=== PATIENT | male | born 1975 | race Caucasian/White ===

== ENCOUNTER 2023-01-18 13:03 | Emergency (ER) | payer BC ==
[2023-01-18] MEDS ORDERED: Ondansetron 4 MG/2 ML SDV IVPUSH ONE (13:51)
[2023-01-18] MEDS ORDERED: Sodium Chloride 0.9% 1,000 ML IV ONE (13:52)
[2023-01-18 13:57] LABS: BASOPHILS ABSOLUTE AUTO 0.02 K/uL (0.00-0.20); BASOPHILS PERCENT AUTO 0.2 % (0.0-2.0); EOSINOPHILS ABSOLUTE AUTO 0.01 K/uL (0.00-0.50); EOSINOPHILS PERCENT AUTO 0.1 % (0.0-5.0); HEMATOCRIT 38.2 % (39.0-49.0); HEMOGLOBIN 12.4 g/dL (13.1-16.8); LYMPHOCYTES ABSOLUTE AUTO 0.98 K/uL (0.50-3.50); LYMPHOCYTES PERCENT AUTO 11.1 % (10.0-50.0); MEAN CORPUSCULAR HEMOGLOBIN 29.7 pg (28.2-33.3); MEAN CORPUSCULAR HGB CONC 32.5 g/dL (31.7-36.0); MEAN CORPUSCULAR VOLUME 91.4 fL (84.0-98.0); MONOCYTES ABSOLUTE AUTO 0.56 K/uL (0.00-1.00); MONOCYTES PERCENT AUTO 6.4 % (2.0-14.0); NEUTROPHILS ABSOLUTE AUTO 7.24 K/uL (1.40-7.00); NEUTROPHILS PERCENT AUTO 82.2 % (45.0-80.0); PLATELET COUNT,PLT 416 K/uL (150-350); RED BLOOD CELL COUNT 4.18 M/uL (4.33-5.41); RED CELL DISTRIBUTION WIDTH 14.1 % (11.2-14.1); WHITE BLOOD CELL COUNT,WBC 8.8 K/uL (4.0-10.2)
[2023-01-18 14:05] LABS: APPEARANCE,URINE SLIGHTLY CLOUDY; BILIRUBIN,URINE NEGATIVE (NEGATIVE); COLOR,URINE YELLOW; GLUCOSE,URINE NEGATIVE (NEGATIVE); KETONES,URINE 15 mg/dL (NEGATIVE); LEUKOCYTE ESTERASE,URINE NEGATIVE (NEGATIVE); NITRITE,URINE NEGATIVE (NEGATIVE); OCCULT BLOOD,URINE SMALL (NEGATIVE); PH,URINE 5.5 (5.0-9.0); PROTEIN,URINE 30 mg/dL (NEGATIVE); UROBILINOGEN,URINE 0.2 E.U./dL (0.2-1.0)
[2023-01-18] MEDS ORDERED: Sodium Chloride 0.9% 10 ML Syringe FLUSH PRN (14:06)
[2023-01-18 14:12] LABS: ALBUMIN 3.3 g/dL (3.4-5.0); ANION GAP 11.2 meq/L (7-15); BILIRUBIN TOTAL 0.9 mg/dL (0.2-1.0); C-REACTIVE PROTEIN 6.5 mg/dL (0.05-0.30); CALCIUM 8.9 mg/dL (8.5-10.1); CARBON DIOXIDE,CO2 23.8 mmol/L (21.0-32.0); CREATININE 1.13 mg/dL (0.51-1.17); POTASSIUM,K 4.2 mmol/L (3.5-5.1); PROTEIN TOTAL,TP 7.7 g/dL (6.4-8.2)
[2023-01-18 14:15] LABS: BACTERIA,URINE RARE /HPF (NONE TO FEW); EPITHELIAL CELLS,URINE RARE /LPF; GRANULAR CASTS,URINE RARE; HYALINE CASTS,URINE RARE; RBC,URINE 0-5 /HPF; WBC,URINE 0-5 /HPF
[2023-01-18 14:16] LABS: MUCUS,URINE RARE /LPF (NEGATIVE)
[2023-01-18] MEDS ORDERED: fentaNYL 50 MCG/ML SDV IVPUSH ONE ×2 (14:24→17:02)
[2023-01-18] MEDS ORDERED: Naloxone 0.4 MG/ML SDV IVPUSH PRN (14:24)
[2023-01-18] MEDS ORDERED: Iopamidol 612 MG/ML 100 ML Bottle IVPUSH ONE (14:55)
[2023-01-18] MEDS ORDERED: Metoprolol Succinate 25 MG Tab.ER PO ONE (16:01)
[2023-01-18] MEDS ORDERED: Pantoprazole 40 MG Vial IVPUSH ONE (16:26)
[2023-01-18 17:34] VITALS: BP 146/98; PULSE 113
== END 2023-01-18 17:46 ==
LOC: LL.ED 13:03
DX: K25.9 Gastric ulcer, unspecified as acute or chronic, without hemorrhage or perforation (principal); F17.210 Nicotine dependence, cigarettes, uncomplicated; I10 Essential (primary) hypertension; Z79.82 Long term (current) use of aspirin; Z79.899 Other long term (current) drug therapy
CPT/HCPCS: 36415; 74177; 80053; 81001; 83690; 85025; 86140; 96361; 96374; 96375; 99284; 99285-25; A9270-GY; C9113; J2405; J3010; J3490; J7030; Q9967